=== PATIENT | female | born 1960 ===

== ENCOUNTER 2022-02-08 09:58 | Day surgery (SDC) | payer OTHER ==
[~2022-02-08] VITALS: Ht 165.1 cm; Wt 77.1 kg
[~2022-02-08 09:58] MED LIST: COZAAR50 MG PO
== END 2022-02-09 00:12 | disposition home or self-care (01) ==
LOC: CIR.AMB 09:58
PROVIDERS: ATTEND Obstetrics & Gynecology Obstetrics
DX: N93.9 Abnormal uterine and vaginal bleeding, unspecified (principal); Z20.822 Contact with and (suspected) exposure to COVID-19; I10 Essential (primary) hypertension; K57.30 Diverticulosis of large intestine without perforation or abscess without bleeding